=== PATIENT | female | born 1970 | race Hispanic/Latino ===

== ENCOUNTER 2020-10-18 18:28 | Emergency (ER) | payer SELFPAY ==
[2020-10-18 18:46] LABS: #Monocytes 0.4 10x3/uL (0.0-1.1); #Neutrophils 3.6 10x3/uL (1.5-8.4); %Basophils 0.3 % (0.0-2.0); %Eosinophils 0.1 % (0.0-6.0); %Lymphocytes 41.6 % (18.0-47.0); %Neutrophils 51.7 % (40.0-75.0); Hemoglobin 14.1 g/dL (12.0-15.5); Mean Corpuscular HGB CONC 34.1 g/dL (32.0-36.0); Mean Corpuscular Hemoglobin 30.7 pg (27.0-33.0); Mean Platelet Volume 8.8 fl (7.4-10.4); Platelet Count 266 10x3/uL (150-450); RBC Distribution Width 12.9 % (11.5-14.5); White Blood Cell (WBC) Count 6.9 10x3/uL (3.5-10.5)
[2020-10-18 19:03] LABS: ALT (SGPT) 43 U/L (8-55); AST (SGOT) 30 U/L (5-34); Albumin 4.3 g/dL (3.5-5.0); Alkaline Phosphatase 96 U/L (40-110); Anion Gap 16 mmol/L (10-20); BUN (Urea Nitrogen) 8 mg/dL (9.8-20.1); Bilirubin, Total 0.4 mg/dL (0.2-1.2); Calc. Creatinine Clearance 0 mL/min (70-130); Calcium 9.2 mg/dL (7.8-10.44); Carbon Dioxide 26 mmol/L (22-29); Chloride 104 mmol/L (98-107); Globulin 3.4 g/dL (2.4-3.5); Glucose 121 mg/dL (70-105); Lipase 26 U/L (8-78); Potassium 3.5 mmol/L (3.5-5.1); Protein, Total 7.7 g/dL (6.0-8.3); Sodium 142 mmol/L (136-145)
[2020-10-18] MEDS ORDERED: Morphine 4 MG/ML VIAL ONE (19:22)
[2020-10-18] MEDS ORDERED: Ondansetron PF 4 MG/2 ML Vial ONE (19:22)
[2020-10-18] MEDS ORDERED: Pantoprazole 40 MG VIAL ONE (19:23)
[2020-10-18 19:57] LABS: Bilirubin Neg (Negative); Blood, Urine Negative (Negative); Clarity Clear (Clear); Glucose, Urine (Dipstick) Normal (Negative); Ketone, Urine Negative (Negative); Leukocyte 25 (Negative); Nitrite Negative (Negative); Protein, Urine (Dipstick) Negative (Neg-Trace); Urobilinogen Normal mg/dL (Less than 2)
[2020-10-18 20:08] LABS: Squamous Epithelial 0-3 HPF (0-3)
[2020-10-18 20:09] LABS: Bacteria/HPF Rare-Few HPF (None Seen); RBC/HPF None Seen HPF (0-3); WBC/HPF 0-3 HPF (0-3)
== END 2020-10-18 21:43 | disposition home or self-care (01) ==
LOC: CSHERS 18:28
DX: R10.13 Epigastric pain (principal); R03.0 Elevated blood-pressure reading, without diagnosis of hypertension
CPT/HCPCS: 71045; 74177; 76705; 80053; 81003; 81015; 83690; 84484; 85025; 93005; 96374; 96375; C9113; J2270; J2405